=== PATIENT | female | born 1945 | race Two or more races ===

== ENCOUNTER → 2018-03-10 | Outpatient (CLI) | payer BC | END | disposition home or self-care (01) | LOC: LAB 08:00 | DX: Z01.818 Encounter for other preprocedural examination (principal) ==

== ENCOUNTER 2018-03-20 06:59 | Inpatient (IN) | payer BC ==
[2018-03-20] MEDS ORDERED: BUPIVACAINE 0.75%/DEXT (SPINAL) 2 ML INJ (07:00)
[2018-03-20] MEDS ORDERED: BETHANECHOL 25 MG TAB PO (08:00)
[2018-03-20] MEDS ORDERED: NA PHOSPHATE/BIPHOS 133 ML ENEMA PR (08:00)
[2018-03-20] MEDS ORDERED: BISACODYL 10 MG SUPP PR (08:00)
[2018-03-20] MEDS ORDERED: oxyCODONE 5 MG TAB PO ×2 (08:00)
[2018-03-20] MEDS ORDERED: NACL 0.9% 3 ML SYG IV (08:00)
[2018-03-20] MEDS ORDERED: DIPHENHYDRAMINE 50 MG INJ IV (08:00)
[2018-03-20] MEDS ORDERED: NALOXONE (0.4 MG/ML) INJ IV (08:00)
[2018-03-20] MEDS ORDERED: ONDANSETRON 4 MG INJ IV (08:00)
[2018-03-20] MEDS: ACETAMINOPHEN 1000MG/100ML IV 100 ML IVPB (08:46)
[2018-03-20] MEDS ORDERED: MIDAZOLAM 1 MG/ML 2 ML INJ (08:57)
[2018-03-20] MEDS ORDERED: NEOSTIGMINE 3 MG/3 ML SYRINGE (08:57)
[2018-03-20] MEDS ORDERED: ROCURONIUM 50 MG INJ (08:57)
[2018-03-20] MEDS ORDERED: CEFAZOLIN 1 GM INJ (08:57)
[2018-03-20] MEDS ORDERED: GLYCOPYRROLATE 0.4 MG INJ (08:57)
[2018-03-20] MEDS ORDERED: PROPOFOL 20 ML (08:57)
[2018-03-20] MEDS ORDERED: FENTAnyl 50 MCG/ML VIAL (08:58)
[2018-03-20] MEDS ORDERED: DEXAMETHASONE 4 MG/ML 1 ML INJ (08:58)
[2018-03-20] MEDS ORDERED: morphine SULFATE/PF (10 MG/10 ML) INJ (08:58)
[2018-03-20] MEDS ORDERED: ONDANSETRON 4 MG INJ (08:58)
[2018-03-20] MEDS ORDERED: EPINEPHrine 1 MG INJ (09:00)
[2018-03-20] MEDS: CEFAZOLIN 2 GM/50 ML (PMX) 50 ML (FOR WT < 120 KG) IVPB (10:33)
[2018-03-20] MEDS: TRANEXAMIC ACID 1,000 MG in D5W 100 ML AT INCISION X1 IVPB (10:45)
[2018-03-20] MEDS: LACTATED RINGER'S 1,000 ML IV (10:45)
[2018-03-20] MEDS: DEXAMETHASONE 4 MG/ML 1 ML INJ IV (10:45)
[2018-03-20] MEDS: BACITRACIN 50000 UNITS INJ (11:09)
[2018-03-20] MEDS: POLYMYXIN B 500000 UNIT INJ (11:09)
[2018-03-20] MEDS: TRANEXAMIC ACID 1,000 MG in D5W 100 ML AT CLOSURE X1 IVPB (11:45)
[2018-03-20] MEDS: CEFAZOLIN 1 GM/50 ML (PMX) 50 ML IVPB ×3 (12:34→22:52)
[2018-03-20] MEDS: DOCUSATE SODIUM 100 MG CAP PO (12:35)
[2018-03-20] MEDS: ASPIRIN (EC) 325 MG TAB PO (12:36)
[2018-03-20] MEDS: SOD CHLORIDE 0.9% 1,000 ML IV ×3 (13:48→23:00)
[2018-03-20] MEDS: GABAPENTIN 100 MG CAP PO ×2 (14:05→21:53)
[2018-03-20] MEDS: ONDANSETRON 4 MG INJ IV ×2 (18:06→22:51)
[2018-03-20] MEDS: PANTOPRAZOLE (EC) 40 MG TAB PO (18:06)
[2018-03-20] MEDS: PROPRANOLOL 40 MG TAB PO (21:00)
[2018-03-20 21:42] LABS: CK-MB 5.21 ng/ml (0.0-2.4)
[2018-03-20 21:46] LABS: TROPONIN-I < 0.012 ng/ml (0.000-0.120)
[2018-03-20] MEDS: ATORVASTATIN 20 MG TAB PO (21:53)
[2018-03-20] MEDS: AL HYDROX/MG HYDROX/SIMETH 30 ML CUP PO (21:57)
[2018-03-20] MEDS: TOPIRAMATE SPRINKLE 25 MG CAP PO (22:50)
[2018-03-21] MEDS: AL HYDROX/MG HYDROX/SIMETH 30 ML CUP PO (05:00)
[2018-03-21 05:03] LABS: ADD MAN DIFF? NO
[2018-03-21 05:05] LABS: WHITE BLOOD COUNT 7.3 10^3/ul (4.8-10.8)
[2018-03-21 05:05] LABS: BASOPHILS % 0.1 % (0.0-2.0); HEMATOCRIT 28.6 % (37.0-47.0); LYMPHOCYTES # 1.1 10^3/ul (0.8-2.9); LYMPHOCYTES % 15.3 % (15.0-51.0); MEAN CORPUSCULAR HEMOGLOBIN 27.4 pg (29.0-33.0); MEAN CORPUSCULAR HGB CONC 31.5 g/dl (32.0-37.0); MEAN CORPUSCULAR VOLUME 86.9 fl (82.0-101.0); MEAN PLATELET VOLUME 10.1 fl (7.4-10.4); MONOCYTE # 0.6 10^3/ul (0.3-0.9); MONOCYTES % 7.7 % (0.0-11.0); NEUTROPHIL # 5.6 10^3/ul (1.6-7.5); NEUTROPHILS % 76.6 % (39.0-77.0); PLATELET COUNT 195 10^3/UL (140-415); RED BLOOD COUNT 3.29 10^6/ul (4.20-5.40); RED CELL DISTRIBUTION WIDTH 14.3 % (11.5-14.5)
[2018-03-21 05:25] LABS: ANION GAP 9 (8-16); BLOOD UREA NITROGEN 11 mg/dl (7-20); CALCIUM 9.1 mg/dl (8.4-10.2); CARBON DIOXIDE 26 mmol/L (21-31); CHLORIDE 108 mmol/L (97-110); CREATININE 0.56 mg/dl (0.44-1.00); GLUCOSE 109 mg/dl (70-220); POTASSIUM 4.4 mmol/L (3.5-5.1); SODIUM 139 mmol/L (135-144)
[2018-03-21] MEDS: ONDANSETRON 4 MG INJ IV ×2 (05:26→10:29)
[2018-03-21] MEDS: PANTOPRAZOLE (EC) 40 MG TAB PO ×2 (05:27→18:06)
[2018-03-21 05:40] LABS: PHOSPHORUS 3.8 mg/dl (2.5-4.9)
[2018-03-21] MEDS ORDERED: PANTOPRAZOLE (EC) 40 MG TAB PO (06:00)
[2018-03-21] MEDS: oxyCODONE 5 MG TAB PO ×3 (07:57→18:24)
[2018-03-21] MEDS ORDERED: CELECOXIB 200 MG CAP PO (09:00)
[2018-03-21] MEDS: OXYBUTYNIN (XL) 5 MG TAB PO (09:03)
[2018-03-21] MEDS: FERROUS FUMARATE (SR) TAB PO ×2 (09:03→20:56)
[2018-03-21] MEDS: NIFEdipine (XL) 60 MG TAB PO (09:03)
[2018-03-21] MEDS: CHOLECALCIFEROL 2,000 UNIT CAP PO (09:03)
[2018-03-21] MEDS: DOCUSATE SODIUM 100 MG CAP PO ×2 (09:03→19:33)
[2018-03-21] MEDS: GABAPENTIN 100 MG CAP PO ×2 (09:03→20:57)
[2018-03-21] MEDS: ASPIRIN (EC) 325 MG TAB PO (09:04)
[2018-03-21] MEDS: PROPRANOLOL 40 MG TAB PO ×2 (09:08→20:57)
[2018-03-21] MEDS: TOPIRAMATE SPRINKLE 25 MG CAP PO ×2 (09:08→20:56)
[2018-03-21] MEDS: CELECOXIB 100 MG CAP PO ×2 (09:47→21:00)
[2018-03-21] MEDS: KETOROLAC 15 MG INJ IV (10:28)
[2018-03-21] MEDS: SOD CHLORIDE 0.9% 1,000 ML IV ×2 (11:25→21:24)
[2018-03-21] MEDS: ASPIRIN (EC) 81 MG TAB PO (13:14)
[2018-03-21] MEDS: MAGNESIUM HYDROXIDE 30ML CUP PO (19:33)
[2018-03-21] MEDS: ATORVASTATIN 20 MG TAB PO (20:56)
[2018-03-22 05:14] LABS: ADD MAN DIFF? NO
[2018-03-22 05:19] LABS: WHITE BLOOD COUNT 6.2 10^3/ul (4.8-10.8)
[2018-03-22 05:19] LABS: BASOPHILS % 0.5 % (0.0-2.0); EOSINOPHILS % 0.5 % (0.0-7.0); HEMATOCRIT 28.4 % (37.0-47.0); HEMOGLOBIN 8.9 g/dl (12.0-16.0); LYMPHOCYTES # 1.2 10^3/ul (0.8-2.9); LYMPHOCYTES % 19.5 % (15.0-51.0); MEAN CORPUSCULAR HEMOGLOBIN 26.7 pg (29.0-33.0); MEAN CORPUSCULAR HGB CONC 31.3 g/dl (32.0-37.0); MEAN CORPUSCULAR VOLUME 85.3 fl (82.0-101.0); MEAN PLATELET VOLUME 10.3 fl (7.4-10.4); MONOCYTE # 0.5 10^3/ul (0.3-0.9); NEUTROPHIL # 4.4 10^3/ul (1.6-7.5); NEUTROPHILS % 71.2 % (39.0-77.0); PLATELET COUNT 192 10^3/UL (140-415); RED BLOOD COUNT 3.33 10^6/ul (4.20-5.40); RED CELL DISTRIBUTION WIDTH 14.5 % (11.5-14.5)
[2018-03-22] MEDS: PANTOPRAZOLE (EC) 40 MG TAB PO ×2 (05:40→18:53)
[2018-03-22 05:42] LABS: ANION GAP 8 (8-16); BLOOD UREA NITROGEN 16 mg/dl (7-20); CALCIUM 8.5 mg/dl (8.4-10.2); CARBON DIOXIDE 28 mmol/L (21-31); CHLORIDE 105 mmol/L (97-110); CREATININE 0.65 mg/dl (0.44-1.00); GLUCOSE 109 mg/dl (70-220); MAGNESIUM 2.1 mg/dl (1.7-2.5); SODIUM 137 mmol/L (135-144)
[2018-03-22 05:42] LABS: PHOSPHORUS 2.3 mg/dl (2.5-4.9)
[2018-03-22] MEDS: ACETAMINOPHEN 325 MG TAB PO (05:44)
[2018-03-22] MEDS: TOPIRAMATE SPRINKLE 25 MG CAP PO ×2 (09:46→20:23)
[2018-03-22] MEDS: FERROUS FUMARATE (SR) TAB PO ×2 (09:46→20:23)
[2018-03-22] MEDS: ASPIRIN (EC) 81 MG TAB PO (09:46)
[2018-03-22] MEDS: CELECOXIB 100 MG CAP PO ×2 (09:46→20:23)
[2018-03-22] MEDS: OXYBUTYNIN (XL) 5 MG TAB PO (09:46)
[2018-03-22] MEDS: NIFEdipine (XL) 60 MG TAB PO (09:47)
[2018-03-22] MEDS: GABAPENTIN 100 MG CAP PO ×2 (09:47→20:23)
[2018-03-22] MEDS: PROPRANOLOL 40 MG TAB PO ×2 (09:48→20:28)
[2018-03-22] MEDS: CHOLECALCIFEROL 2,000 UNIT CAP PO (09:48)
[2018-03-22] MEDS: DOCUSATE SODIUM 100 MG CAP PO ×2 (09:48→20:23)
[2018-03-22] MEDS: SOD CHLORIDE 0.9% 1,000 ML IV (09:54)
[2018-03-22] MEDS: NEUTRA-PHOS 250 MG PACKET PO (13:11)
[2018-03-22] MEDS: oxyCODONE 5 MG TAB PO (20:22)
[2018-03-22] MEDS: ATORVASTATIN 20 MG TAB PO (20:23)
[2018-03-23 05:08] LABS: ADD MAN DIFF? NO
[2018-03-23 05:18] LABS: BASOPHILS % 0.5 % (0.0-2.0); EOSINOPHILS # 0.1 10^3/ul (0.0-0.5); EOSINOPHILS % 0.9 % (0.0-7.0); HEMATOCRIT 27.2 % (37.0-47.0); HEMOGLOBIN 8.5 g/dl (12.0-16.0); LYMPHOCYTES # 1.6 10^3/ul (0.8-2.9); LYMPHOCYTES % 29.9 % (15.0-51.0); MEAN CORPUSCULAR HEMOGLOBIN 26.6 pg (29.0-33.0); MEAN CORPUSCULAR HGB CONC 31.3 g/dl (32.0-37.0); MEAN PLATELET VOLUME 10.8 fl (7.4-10.4); MONOCYTE # 0.6 10^3/ul (0.3-0.9); MONOCYTES % 10.2 % (0.0-11.0); NEUTROPHIL # 3.2 10^3/ul (1.6-7.5); NEUTROPHILS % 58.3 % (39.0-77.0); PLATELET COUNT 205 10^3/UL (140-415); RED CELL DISTRIBUTION WIDTH 14.6 % (11.5-14.5)
[2018-03-23 05:18] LABS: WHITE BLOOD COUNT 5.5 10^3/ul (4.8-10.8)
[2018-03-23 05:40] LABS: PHOSPHORUS 2.4 mg/dl (2.5-4.9)
[2018-03-23 05:42] LABS: ANION GAP 9 (8-16); BLOOD UREA NITROGEN 13 mg/dl (7-20); CALCIUM 8.8 mg/dl (8.4-10.2); CARBON DIOXIDE 26 mmol/L (21-31); CHLORIDE 108 mmol/L (97-110); CREATININE 0.59 mg/dl (0.44-1.00); GLUCOSE 94 mg/dl (70-220); POTASSIUM 3.6 mmol/L (3.5-5.1); SODIUM 139 mmol/L (135-144)
[2018-03-23] MEDS: PANTOPRAZOLE (EC) 40 MG TAB PO (05:55)
[2018-03-23] MEDS: oxyCODONE 5 MG TAB PO (05:55)
[2018-03-23] MEDS: MAGNESIUM HYDROXIDE 30ML CUP PO ×2 (06:01→09:55)
[2018-03-23] MEDS: SENNA/DOCUSATE NA (8.6MG/50MG) TAB PO (06:01)
[2018-03-23] MEDS: CELECOXIB 100 MG CAP PO (08:26)
[2018-03-23] MEDS: DOCUSATE SODIUM 100 MG CAP PO (08:27)
[2018-03-23] MEDS: ASPIRIN (EC) 81 MG TAB PO (08:27)
[2018-03-23] MEDS: CHOLECALCIFEROL 2,000 UNIT CAP PO (08:27)
[2018-03-23] MEDS: GABAPENTIN 100 MG CAP PO (08:27)
[2018-03-23] MEDS: TOPIRAMATE SPRINKLE 25 MG CAP PO (08:27)
[2018-03-23] MEDS: FERROUS FUMARATE (SR) TAB PO (08:27)
[2018-03-23] MEDS: NIFEdipine (XL) 60 MG TAB PO (08:28)
[2018-03-23] MEDS: OXYBUTYNIN (XL) 5 MG TAB PO (08:34)
[2018-03-23] MEDS: PROPRANOLOL 40 MG TAB PO (08:35)
[2018-03-23] MEDS ORDERED: POTASSIUM PHOSPHATE 20 MEQ in SOD CHLORIDE 0.9% 250 ML IVPB (11:00)
[2018-03-23] MEDS: POTASSIUM CHLORIDE 20 MEQ /SW 100 ML IVPB (12:23)
[2018-03-23] MEDS: SODIUM PHOSPHATE IV (13:07)
[2018-03-23] MEDS: SOD CHLORIDE 0.9% IV (13:07)
[2018-03-23] MEDS: POTASSIUM CHLORIDE 20 MEQ POWDER FOR ORAL SOLN PO (14:16)
[2018-03-23] MEDS: NEUTRA-PHOS 250 MG PACKET PO (17:39)
== END 2018-03-23 18:00 | disposition home health service (06) | DRG 470 ==
LOC: REC 06:59 → MS1 13:18
PROVIDERS: Orthopaedic Surgery
PROC: 0SR904A Replacement of Right Hip Joint with Ceramic on Polyethylene Synthetic Substitute, Uncemented, Open Approach (ICD-10-PCS; principal; 2018-03-20 10:00)
DX: M16.11 Unilateral primary osteoarthritis, right hip (principal); I10 Essential (primary) hypertension; K21.9 Gastro-esophageal reflux disease without esophagitis; E78.5 Hyperlipidemia, unspecified; R00.2 Palpitations; G43.909 Migraine, unspecified, not intractable, without status migrainosus
CPT/HCPCS: 73530; 80048; 82553; 83735; 84100; 84484; 85025; 86850; 86900; 86901; 87081; 88304; 88311; 93005; 97110; 97116; 97162; 97166; 97530; 97535